=== PATIENT | male | born 1945 | race Caucasian/White ===

== ENCOUNTER → 2017-10-08 | Outpatient (CLI) | payer MEDICARE, BC, OTHER ==
[2017-10-08 09:36] LABS: BASO % 0.4 % (0.0-1.0); EOS # 0.1 10^3/uL (0.0-0.50); EOS % 1.1 % (0.0-3.0); HEMATOCRIT 42.4 % (42.0-52.0); HEMOGLOBIN 15.1 g/dl (13.5-17.5); IMMATURE GRANULOCYTE % 0.4 % (0-3.0); LYMPH # 2.2 10^3/uL (1.5-4.5); LYMPH % 26.6 % (24.0-44.0); MEAN CORPUSCULAR HEMOGLOBIN 31.1 pg (27.0-33.0); MEAN CORPUSCULAR HGB CONC 35.6 g/dl (32.0-36.5); MEAN CORPUSCULAR VOLUME 87.4 fl (80.0-96.0); MONO # 0.5 10^3/uL (0.0-0.8); MONO % 6.3 % (0.0-5.0); NEUTROPHILS # 5.3 10^3/uL (1.8-7.7); NEUTROPHILS % 65.2 % (36.0-66.0); PLATELET COUNT, AUTOMATED 156 10^3/uL (150-450); RED BLOOD COUNT 4.85 10^6/uL (4.30-6.10); RED CELL DISTRIBUTION WIDTH 18.1 % (11.5-14.5); WHITE BLOOD COUNT 8.1 10^3/uL (4.0-10.0)
[2017-10-08 10:02] LABS: MAGNESIUM LEVEL 1.9 MG/DL (1.8-2.4)
== END ==
LOC: M LAB 08:58
DX: C49.9 Malignant neoplasm of connective and soft tissue, unspecified (principal)
CPT/HCPCS: 83735

== ENCOUNTER → 2018-06-23 | Outpatient (CLI) | payer MEDICARE, BC, OTHER ==
[~2018-06-23] MED LIST: /AUGM875TA OR; ASPI81TA83 OR; AVEL1TAB2 OR; CAPT12.5 OR; CARV3.12 OR; ISOS30BRAN OR; LEVA1TAB2 PO; No Historical Meds; PERCOCET PO; PROTPAK PO; TRILIPEX PO; ZITHTAB OR; apresoline PO; prednisone PO
[2018-06-23 12:42] LABS: BASO % 0.2 % (0.0-1.0); EOS # 0.1 10^3/uL (0.0-0.50); EOS % 1.1 % (0.0-3.0); HEMATOCRIT 31.2 % (42.0-52.0); HEMOGLOBIN 10.9 g/dl (13.5-17.5); LYMPH # 1.7 10^3/uL (1.5-4.5); LYMPH % 39.1 % (24.0-44.0); MEAN CORPUSCULAR HEMOGLOBIN 35.2 pg (27.0-33.0); MEAN CORPUSCULAR HGB CONC 34.9 g/dl (32.0-36.5); MEAN CORPUSCULAR VOLUME 100.6 fl (80.0-96.0); MONO # 0.6 10^3/uL (0.0-0.8); MONO % 12.7 % (0.0-5.0); NEUTROPHILS # 2.1 10^3/uL (1.8-7.7); NEUTROPHILS % 46.7 % (36.0-66.0); PLATELET COUNT, AUTOMATED 201 10^3/uL (150-450); WHITE BLOOD COUNT 4.4 10^3/uL (4.0-10.0)
[2018-06-23 13:04] LABS: ALBUMIN 3.4 GM/DL (3.2-5.2); ALT/SGPT 110 U/L (12-78); BILIRUBIN,TOTAL 0.6 MG/DL (0.2-1.0); BLOOD UREA NITROGEN 23 MG/DL (7-18); CALCIUM LEVEL 8.2 MG/DL (8.8-10.2); CARBON DIOXIDE LEVEL 27 MEQ/L (21-32); CHLORIDE LEVEL 110 MEQ/L (98-107); CREATININE FOR GFR 1.12 MG/DL (0.70-1.30); GLOMERULAR FILTRATION RATE > 60.0 (>42); GLUCOSE, FASTING 112 MG/DL (70-100); POTASSIUM SERUM 5.3 MEQ/L (3.5-5.1); SODIUM LEVEL 141 MEQ/L (136-145); TOTAL PROTEIN 6.2 GM/DL (6.4-8.2)
== END ==
LOC: M LAB 11:28
PROVIDERS: ATTEND Internal Medicine Hematology & Oncology
DX: C62.11 Malignant neoplasm of descended right testis (principal); C49.6 Malignant neoplasm of connective and soft tissue of trunk, unspecified

== ENCOUNTER → 2018-06-27 | Outpatient (CLI) | payer MEDICARE, BC, OTHER ==
[2018-06-27 08:49] LABS: BLOOD UREA NITROGEN 20 MG/DL (7-18); CALCIUM LEVEL 8.4 MG/DL (8.8-10.2); CARBON DIOXIDE LEVEL 27 MEQ/L (21-32); CHLORIDE LEVEL 108 MEQ/L (98-107); CREATININE FOR GFR 1.02 MG/DL (0.70-1.30); GLOMERULAR FILTRATION RATE > 60.0 (>42); GLUCOSE, FASTING 140 MG/DL (70-100); POTASSIUM SERUM 4.3 MEQ/L (3.5-5.1); SODIUM LEVEL 140 MEQ/L (136-145)
== END ==
LOC: M LAB 08:02
DX: C62.11 Malignant neoplasm of descended right testis (principal); C49.8 Malignant neoplasm of overlapping sites of connective and soft tissue

== ENCOUNTER → 2018-09-24 | Outpatient (CLI) | payer MEDICARE, BC, OTHER ==
[~2018-09-24] MED LIST changes: +ASPI81TA85 PO; +FURO20TA2; +LEVA750T7 PO; +PANT40TA3; +ROSU20TA5; +XARE20TA
[2018-09-24 09:27] LABS: BLOOD UREA NITROGEN 18 MG/DL (7-18); GLOMERULAR FILTRATION RATE > 60.0 (>42)
== END ==
LOC: M LAB 08:06
PROVIDERS: ATTEND Internal Medicine Hematology & Oncology
DX: C49.6 Malignant neoplasm of connective and soft tissue of trunk, unspecified (principal); C62.11 Malignant neoplasm of descended right testis; C78.02 Secondary malignant neoplasm of left lung; C78.01 Secondary malignant neoplasm of right lung

== ENCOUNTER 2018-11-27 18:02 | Emergency (ER) | payer MEDICARE, BC, OTHER ==
[~2018-11-27] VITALS: Ht 162.6 cm; Wt 63.6 kg
[~2018-11-27 18:02] MED LIST changes: -ASPI81TA85 PO; -FURO20TA2; -LEVA750T7 PO; -PANT40TA3; -ROSU20TA5; -XARE20TA
[2018-11-27] MEDS ORDERED: ROSU20TA5 (18:11)
[2018-11-27] MEDS ORDERED: PANT40TA3 (18:11)
[2018-11-27] MEDS ORDERED: XARE20TA (18:11)
[2018-11-27] MEDS ORDERED: FURO20TA2 (18:11)
[2018-11-27] MEDS ORDERED: ASPI81TA85 PO (18:42)
[2018-11-27 19:24] LABS: BASO # 0.1 10^3/uL (0.0-0.2); BASO % 0.2 % (0.0-1.0); EOS % 0.1 % (0.0-3.0); HEMATOCRIT 25.6 % (42.0-52.0); HEMOGLOBIN 7.9 g/dl (13.5-17.5); LYMPH # 2.8 10^3/uL (1.5-5.0); LYMPH % 12.5 % (24.0-44.0); MEAN CORPUSCULAR HEMOGLOBIN 25.5 pg (27.0-33.0); MEAN CORPUSCULAR HGB CONC 30.9 g/dl (32.0-36.5); MEAN CORPUSCULAR VOLUME 82.6 fl (80.0-96.0); NEUTROPHILS # 16.7 10^3/uL (1.5-8.5); NEUTROPHILS % 75.3 % (36.0-66.0); PLATELET COUNT, AUTOMATED 292 10^3/uL (150-450); WHITE BLOOD COUNT 22.2 10^3/uL (4.0-10.0)
[2018-11-27 19:32] LABS: MONO # 2.5 10^3/uL (0.0-0.8)
[2018-11-27 19:37] LABS: INR 1.62
--- NOTE | 2018-11-27 19:55 | REP ---
PA and lateral chest: Comparison is 12/02/2015. There is a right IJ central venous [id number]-[id number] catheter with the tip in the superior vena cava, as a change from the prior study. There is a large mass posteriorly inferiorly in the right hemithorax as an interval change. There is a large mass anteriorly thorax as an interval change. There is a right pleural effusion as an interval change. There are sternotomy wires and triple lead pacemaker. Previously there was a double lead pacemaker. There are coronary artery stents, unchanged. Impression: There are new large masses in the right hemithorax and a new right pleural effusion. Pacemaker as described. Right IJ central venous catheter. Coronary artery stents. Electronically Signed by Dharmesh Moy MD 11/27/2018 07:47 P
[2018-11-27 20:06] LABS: BLOOD UREA NITROGEN 13 MG/DL (7-18); CALCIUM LEVEL 8.2 MG/DL (8.8-10.2); CARBON DIOXIDE LEVEL 33 MEQ/L (21-32); CHLORIDE LEVEL 93 MEQ/L (98-107); CK-MB VALUE MASS 1.3 NG/ML (<3.6); CPK CREATINE PHOSPHOKINASE 34 U/L (39-308); CREATININE FOR GFR 0.77 MG/DL (0.70-1.30); GLOMERULAR FILTRATION RATE > 60.0 (>42); GLUCOSE, FASTING 119 MG/DL (70-100); MB/CK RELATIVE INDEX 3.82 (< OR =4); POTASSIUM SERUM 3.2 MEQ/L (3.5-5.1); SODIUM LEVEL 135 MEQ/L (136-145); TROPONIN I 0.05 NG/ML (< 0.10)
[2018-11-27] MEDS ORDERED: ISOVUE-370 76% 100ML VIAL (Q9967) As Ordered ONE (20:25)
--- NOTE | 2018-11-27 21:17 | REPVR ---
PROCEDURE INFORMATION: Exam: CT Angiography Chest With Contrast Exam date and time: 11/27/2018 8:29 PM Clinical history: 73 years old, male; Fever; Additional info: SOB, fever, known mets to lungs TECHNIQUE: Imaging protocol: Computed tomographic angiography of the chest with intravenous contrast. 3D rendering: MIP reconstructed images were created and reviewed. Radiation optimization: All CT scans at this facility use at least one of these dose optimization techniques: automated exposure control; mA and/or kV adjustment per patient size (includes targeted exams where dose is matched to clinical indication); or iterative reconstruction. Contrast material: ISOVUE 370; Contrast volume: 100 ml; Contrast route: IV; COMPARISON: CR Chest, 2 view PA, Lat 11/27/2018 6:41 PM (report not provided) FINDINGS: Tubes, catheters and devices: A right-sided Port-A-Cath is present with its tip in the lower SVC. There is a left-sided pacemaker. Pulmonary arteries: No pulmonary embolus is identified. No pulmonary embolus is identified. Aorta: The thoracic aorta is nonaneurysmal. Atherosclerotic vascular calcifications are noted. Lungs: There is heterogeneous pleural based mass posteriorly along the right lower lobe measuring up to 10.9 x 9.1 x 13.1 cm. Within this is an 11 x 7 mm blush of contrast which could represent bronchial invasion or arteriovenous malformation (image 401:[id number]). Pleural based mass anteromedially in the right upper lobe, with some internal air lucencies possibly related to cavitation, measures up to 8.2 x 6.7 x 7.3 cm. This is confluent with the right hilum, for which it is difficult to distinguish. Pleural-based mass inferiorly in the right lower lobe measures up to 3.4 x 2.3 x 1.9 cm. There is masslike consolidation medially in the left lower lobe with opacification of the bronchi here. A pleural-based nodule in the right upper lobe medially measures up to 8 mm (image 401:[id number]). A 1.8 cm nodule is present in the lingula (image [id number]). A 6 mm nodule is present in the left lower lobe (image 41:101). Pleural space: There is some pleural-based thickening on the right more than left, with trace, somewhat loculated pleural fluid on the right. No pneumothorax is identified. Heart: Coronary artery calcifications and stent are noted. Gallbladder and bile ducts: Cholecystectomy clips are present. Lymph nodes: There is right hilar lymphadenopathy measuring up to 1.6 cm short axis. Subcentimeter short axis lymph nodes are present in the mediastinum. Bones/joints: Unremarkable. No acute fracture. Soft tissues: Unremarkable. IMPRESSION: 1. No pulmonary embolus identified. 2. Multiple pulmonary nodules and masses as above, some pleural-based, largest measuring up to 13.1 cm. This largest nodule contains a small blush of contrast which could represent bronchial invasion or arteriovenous malformation. 3. Pleural-based thickening, right more than left, with trace, somewhat loculated pleural fluid on the right. This could relate to carcinomatosis. 4. Right hilar lymphadenopathy. Electronically signed by: Arik Pearl On 11/27/2018 21:17:34 PM
[2018-11-27 22:15] VITALS: BP 101/59
[2018-11-27] MEDS ORDERED: LEVA750T7 PO (22:37)
[2018-11-27] MEDS ORDERED: LevoFLOXacin 750 MG TABLET PO ONE (22:45)
--- NOTE | 2018-11-28 07:35 | ED PDOC ---
Post-Departure Follow-Up dr blake alexandra faxed formal report of cta chest for fu Jimmie Ha MD Nov 28, 2018 07:35
--- NOTE | 2018-11-28 07:43 | ECGEPIP ---
[facility] - ED Test Date: 2018-11-27 Pat Name: WALLY BAUTISTA Department: Room: - Gender: Male [employer]er: : [id number] Requested By: GERMAIN Ceballos Order Number: [id number] Reading MD: Mo Espitia Measurements Intervals [place] Rate: 91 P: 19 KS: 139 QRS: 263 QRSD: 154 T: 71 QT: 433 QTc: 535 Interpretive Statements ELECTRONIC VENTRICULAR PACEMAKER NO PRIORS FOR COMPARISON Electronically Signed on 11-28-2018 7:42:54 EDT by Mo Espitia
== END 2018-11-27 23:14 | disposition home or self-care (01) ==
LOC: M ED 18:02
DX: J18.9 Pneumonia, unspecified organism (principal); Z95.0 Presence of cardiac pacemaker; R91.8 Other nonspecific abnormal finding of lung field; Z95.9 Presence of cardiac and vascular implant and graft, unspecified; I25.10 Atherosclerotic heart disease of native coronary artery without angina pectoris; I25.2 Old myocardial infarction; J98.9 Respiratory disorder, unspecified; Z98.61 Coronary angioplasty status; Z95.5 Presence of coronary angioplasty implant and graft; Z95.1 Presence of aortocoronary bypass graft; Z79.82 Long term (current) use of aspirin; Z79.899 Other long term (current) drug therapy; Z88.8 Allergy status to other drugs, medicaments and biological substances; Z91.018 Allergy to other foods
CPT/HCPCS: 71046; 71275; 80048; 82550; 82553; 83605; 84443; 84484; 85025; 85610; 87040; 93005; 93041; 94760; 99285; Q9967